=== PATIENT | male | born 1960 | race Two or more races ===

== ENCOUNTER 2018-03-24 17:35 | Inpatient (IN) | payer OTHER ==
--- NOTE | 2018-03-24 18:40 | ED Physician Chart ---
ED Chief Complaint/HPI - Patient Information Date Seen:: 03/24/18 Time Seen:: 17:55 Chief Complaint:: Dyspnea History of Present Illness:: onset x 2 days of dyspnea; pt denies trauma, LOC, H/As, S/T, neck pain, C/P, Abd. Pain, A/N/V/D/c, fever, chills, or urinary s/s Allergies:: Allergies Allergy/AdvReac Type Severity Reaction Status Date / Time Penicillins [PCN] Allergy Verified 03/24/18 17:56 Vitals:: Vital Signs - 8 hr 03/24/18 03/24/18 17:57 18:03 Temp 97.7 F 97.7 F HR 72 67 RR 20 12 BP 117/59 102/49 O2 Sat % 96 99 Historian:: Patient Review:: Nurse's Note Reviewed, Old Chart Reviewed <Adria Ramirez - Last Filed: 03/24/18 19:04> - Patient Information Allergies:: Allergies Allergy/AdvReac Type Severity Reaction Status Date / Time Penicillins [PCN] Allergy Verified 03/24/18 17:56 Vitals:: Vital Signs - 8 hr 03/24/18 03/24/18 17:57 18:03 Temp 97.7 F 97.7 F HR 72 67 RR 20 12 BP 117/59 102/49 O2 Sat % 96 99 <Donya Beltran - Last Filed: 03/25/18 11:23> ED Review of Systems - Review of Systems General/Constitutional: No fever, No chills, No weight loss, No weakness, No diaphoresis, No edema, No loss of appetite Skin: No skin lesions, No rash, No bruising Head: No headache, No light-headedness Eyes: No loss of vision, No pain, No diplopia ENT: No earache, No nasal drainage, No sore throat, No tinnitus Neck: No neck pain, No swelling, No thyromegaly, No stiffness, No mass noted Cardio Vascular: No chest pain, No palpitations, No PND, No orthopnea, No edema Pulmonary: SOB, No cough, No sputum, Wheezing GI: No nausea, No vomiting, No diarrhea, No pain, No melena, No hematochezia, No constipation, No hematemesis G/U: No dysuria, No frequency, No hematuria, No nacturia Musculoskeletal: No bone or joint pain, No back pain, No muscle pain Endocrine: No polyuria, No polydipsia Psychiatric: No prior psych history, No depression, No anxiety, No suicidal ideation, No homicidal ideation, No auditory hallucination, No visual hallucination Hematopoietic: No bruising, No lymphadenopathy Allergic/Immuno: No urticaria, No angioedema Neurological: No syncope, No focal symptoms, No weakness, No paresthesia, No headache, No seizure, No dizziness, No confusion, No vertigo <Adria Ramirez - Last Filed: 03/24/18 19:04> ED Past Medical History - Past Medical History Obtainable: Yes Past Medical History: HTN, CAD, Asthma/COPD, Dyslipidemia Family History: HTN Social History: Non Smoker, No Alcohol, No Drug Use, , Employed Surgical History: Pacemaker Psychiatricy History: None Medication: Reviewed <Adria Ramirez - Last Filed: 03/24/18 19:04> Family Medical History - Family Member Father History Unknown: Yes Living Status: <Adria Ramirez - Last Filed: 03/24/18 19:04> ED Physical Exam - Physical Examination General/Constitutional: Awake, Well-developed, well-nourished, Alert, No distress, GCS 15, Non-toxic appearing, Ambulatory Head: Atraumatic Eyes: Lids, conjuctiva normal, PERRL, EOMI Skin: Nl inspection, No rash, No skin lesions, No ecchymosis, Well hydrated, No lymphadenopathy ENMT: External ears, nose nl, TM canals nl, Nasal exam nl, Lips, teeth, gums nl , Oropharynx nl, Tonsils nl Neck: Nontender, Full ROM w/o pain, No JVD, No nuchal rigidity, No bruit, No mass, No stridor Respiratory: Nl effort/Exclusion, Clear to Auscultation, No Wheeze/Rhonchi/Rales Cardio Vascular: RRR, No murmur, gallop, rubs, NL S1 S2, Carotid/Femoral/Distal pulses equal bilaterally GI: No tenderness/rebounding/guarding, No organomegaly, No hernia, Normal BS's, Nondistended, No mass/bruits, No McBurney tenderness : No CVA tenderness Extremities: No tenderness or effusion, Full ROM, normal strength in all extremities, No edema, Normal digits & nails Neuro/Psych: Alert/oriented, DTR's symmetric, Normal sensory exam, Normal motor strength, Judgement/insight normal, Mood normal, Normal gait, No focal deficits Misc: Normal back, No paraspinal tenderness <AshleyAdria - Last Filed: 03/24/18 19:04> ED Labs/Radiology/EKG Results - Lab Results Comments:: Reviewed - EKG Interpretations EKG Time:: 18:11 Rate & Rhythm: 70; NSR Comments:: LVH; LAE; IVCD; non-specific st-t changes <DelphinesedagermánAdria - Last Filed: 03/24/18 19:04> - Lab Results Results: Laboratory Tests 03/24/18 03/24/18 03/24/18 18:25 18:25 18:25 WBC 23.9 H* RBC 4.55 Hgb 13.8 Hct 41.5 MCV 91.1 MCH 30.3 H MCHC Differential 33.3 RDW 13.4 Plt Count 228 MPV 9.2 Add Manual Diff YES PT INR PTT (Actin FS) D-Dimer 1220 H Sodium 135 L Potassium 5.0 Chloride 107 Carbon Dioxide 18.9 L Anion Gap 14.1 BUN 43 H Creatinine 1.3 Est GFR ( Amer) > 60.0 Est GFR (Non-Af Amer) > 60.0 BUN/Creatinine Ratio 33.1 Glucose 111 H Whole Bld Lactic Acid Calcium 8.5 L Total Bilirubin 0.8 AST 53 H ALT 75 H Alkaline Phosphatase 65 Creatine Kinase 41 Troponin I B-Natriuretic Peptide 1290.0 H Total Protein 6.1 Albumin 3.7 L Globulin 2.4 Albumin/Globulin Ratio 1.5 Triglycerides 265 H Cholesterol 164 LDL Cholesterol Direct 113 HDL Cholesterol 31 Urine Source Urine Color Urine Clarity Urine pH Ur Specific [place] Urine Protein Urine Glucose (UA) Urine Ketones Urine Blood Urine Nitrate Urine Bilirubin Urine Urobilinogen Ur Leukocyte Esterase Urine RBC Urine WBC Ur Epithelial Cells Urine Bacteria 03/24/18 03/24/18 03/24/18 18:25 18:25 18:25 WBC RBC Hgb Hct MCV MCH MCHC Differential RDW Plt Count MPV Add Manual Diff PT 11.4 INR 1.11 PTT (Actin FS) 21.8 L D-Dimer Sodium Potassium Chloride Carbon Dioxide Anion Gap BUN Creatinine Est GFR ( Amer) Est GFR (Non-Af Amer) BUN/Creatinine Ratio Glucose Whole Bld Lactic Acid 1.98 Calcium Total Bilirubin AST ALT Alkaline Phosphatase Creatine Kinase Troponin I 1.93 H* B-Natriuretic Peptide Total Protein Albumin Globulin Albumin/Globulin Ratio Triglycerides Cholesterol LDL Cholesterol Direct HDL Cholesterol Urine Source Urine Color Urine Clarity Urine pH Ur Specific [place] Urine Protein Urine Glucose (UA) Urine Ketones Urine Blood Urine Nitrate Urine Bilirubin Urine Urobilinogen Ur Leukocyte Esterase Urine RBC Urine WBC Ur Epithelial Cells Urine Bacteria 03/24/18 03/24/18 19:44 19:53 WBC RBC Hgb Hct MCV MCH MCHC Differential RDW Plt Count MPV Add Manual Diff PT INR PTT (Actin FS) D-Dimer Sodium Potassium Chloride Carbon Dioxide Anion Gap BUN Creatinine Est GFR ( Amer) Est GFR (Non-Af Amer) BUN/Creatinine Ratio Glucose Whole Bld Lactic Acid 1.77 Calcium Total Bilirubin AST ALT Alkaline Phosphatase Creatine Kinase Troponin I B-Natriuretic Peptide Total Protein Albumin Globulin Albumin/Globulin Ratio Triglycerides Cholesterol LDL Cholesterol Direct HDL Cholesterol Urine Source [place] Urine Color STRAW Urine Clarity CLEAR Urine pH 5.5 Ur Specific [place] 1.025 Urine Protein NEGATIVE Urine Glucose (UA) NEGATIVE Urine Ketones NEGATIVE Urine Blood TRACE Urine Nitrate NEGATIVE Urine Bilirubin NEGATIVE Urine Urobilinogen 0.2 Ur Leukocyte Esterase NEGATIVE Urine RBC 0-2 H Urine WBC 0-2 Ur Epithelial Cells NONE SEEN Urine Bacteria N - Radiology Results Results: CXR: cardiomegaly CTA chest: no PE <Donya Beltran - Last Filed: 03/25/18 11:23> ED Septic Shock - . Is Septic Shock (SBP<90, OR Lactate>4 mmol\L) present?: No - <6hrs of presentation: Vital Signs: Vital Signs - 8 hr 03/24/18 03/24/18 17:57 18:03 Temp 97.7 F 97.7 F HR 72 67 RR 20 12 BP 117/59 102/49 O2 Sat % 96 99 <Adria Ramirez - Last Filed: 03/24/18 19:04> - . Is Septic Shock (SBP<90, OR Lactate>4 mmol\L) present?: No - <6hrs of presentation: Vital Signs: Vital Signs - 8 hr 03/24/18 03/24/18 17:57 18:03 Temp 97.7 F 97.7 F HR 72 67 RR 20 12 BP 117/59 102/49 O2 Sat % 96 99 <Donya Beltran - Last Filed: 03/25/18 11:23> ED Reassessment (Disposition) - Reassessment Reassessment Condition:: Improved - Diagnosis Diagnosis:: Dyspnea <Adria Ramirez - Last Filed: 03/24/18 19:04> - Reassessment Reassessment:: Leukocytosis - Levaquin Hypotension and dehydration - NS 500ml IV bolus D-Dimer elevated at 1220 - CTA chest: no PE Elevated Troponin Elevated BNP Hypertrophic obstructive cardiomyopathy ICD status Reassessment Condition:: Improved - Patient Disposition Discharge/Transfer:: Acute Care w/in this hosp Admitting Medical Physician:: Ce Akers <Donya Beltran - Last Filed: 03/25/18 11:23>
[2018-03-24 18:46] LABS: BASOPHILE ABSOLUTE 0.5 Th/cumm (0-0.2); EOSINOPHILE ABSOLUTE 0.1 Th/cmm (0.1-0.4); HEMATOCRIT 41.5 % (41.0-60); HEMOGLOBIN 13.8 gm/dL (12-16); LYMPHOCYTE ABSOLUTE 1.3 Th/cmm (1.5-3.0); MEAN CELL VOLUME 91.1 fl (80-99); MEAN CORPUSCULAR HEMOGLOBIN 30.3 pg (26.0-30.0); MEAN CORPUSCULAR HGB CONC 33.3 pg (28.0-36.0); MEAN PLATELET VOLUME 9.2 fl; MONOCYTE ABSOLUTE 1.2 Th/cmm (0.3-1.0); NEUTROPHILE ABSOLUTE 20.8 Th/cmm (1.8-8.0); PLATELET COUNT 228 Th/cmm (150-400); RED BLOOD COUNT 4.55 Mil/cmm (4.30-5.70); RED CELL DISTRIBUTION WIDTH 13.4 % (11.5-20.0)
[2018-03-24 18:53] LABS: INR 1.11 (0.5-1.4); PROTHROMBIN TIME (TEST) 11.4 SECONDS (9.5-11.5)
[2018-03-24 18:55] LABS: ALB/GLOB RATIO 1.5 (1.0-1.8); ALBUMIN 3.7 gm/dL (4.2-5.5); ALKALINE PHOSPHATASE 65 U/L (34-104); ANION GAP 14.1 (7.0-16.0); BILIRUBIN,TOTAL 0.8 mg/dL (0.3-1.0); BUN - UREA NITROGEN 43 mg/dL (7-25); CALCIUM SERUM 8.5 mg/dL (8.6-10.3); CARBON DIOXIDE 18.9 mEq/L (21.0-31.0); CHLORIDE 107 mEq/L (98-107); CHOLESTEROL 164 mg/dL (<200); CREATININE - SERUM 1.3 mg/dL (0.7-1.3); CREATININE KINASE 41 U/L (30-223); GFR AFRICAN-AMERICAN > 60.0 ml/min (>90); GFR NON AFRICAN-AMERICAN > 60.0 ml/min; GLUCOSE 111 mg/dL (70-105); HDL -HIGH DENSITY LIPOPROTEIN 31 mg/dL (23-92); SGOT 53 U/L (13-39); SGPT/ALT 75 U/L (7-52); SODIUM SERUM 135 mEq/L (136-145); TOTAL PROTEIN,SERUM 6.1 gm/dL (6.0-8.3); TRIGLYCERIDES 265 mg/dL (<150)
[2018-03-24 19:22] LABS: DDIMER QUANT 1220 ng/mL (100-400)
[2018-03-24 19:28] LABS: WHITE BLOOD COUNT 23.9 Th/cmm (4.8-10.8)
[2018-03-24] MEDS ORDERED: Levofloxacin 500mg/100mL 500 MG/100 ML BAG IV ONE ×2 (19:33→19:34)
[2018-03-24] MEDS ORDERED: Sodium Chloride 0.9% 1,000 ML IV ONE (19:43)
[2018-03-24 19:55] LABS: URINE SOURCE MIDSTREAM
[2018-03-24 20:00] LABS: URINE BILIRUBIN NEGATIVE (NEGATIVE); URINE BLOOD TRACE (NEGATIVE); URINE GLUCOSE (UA) NEGATIVE (NEGATIVE); URINE KETONE NEGATIVE (NEGATIVE); URINE LEUKOCYTE ESTERASE NEGATIVE (NEGATIVE); URINE MICROSCOPIC INDICATED? YES; URINE NITRATE NEGATIVE (NEGATIVE); URINE PH 5.5 (4.6 - 8.0); URINE PROTEIN NEGATIVE (NEGATIVE); URINE UROBILINOGEN 0.2 E.U./dL (0.2 - 1.0)
[2018-03-24 20:17] LABS: URINE COLOR STRAW
[2018-03-24 20:18] LABS: URINE CLARITY CLEAR (CLEAR); URINE RBC 0-2 /hpf (0-5); URINE WBC 0-2 /hpf (0-5)
[2018-03-24 20:19] LABS: URINE BACTERIA N /hpf (NONE SEEN); URINE EPITHELIAL CELLS NONE SEEN /lpf (FEW)
[2018-03-24] MEDS ORDERED: IOHEXOL 350mgI/mL 100mL Bottle IVP ONE (20:54)
[2018-03-24 21:15] LABS: BAND NEUTROPHILE 1 % (0-10); LYMPHOCYTE 6 % (20-50); MONOCYTE 6 % (2-10); NEUTROPHILS 87 % (40-80)
[2018-03-24] MEDS ORDERED: Sodium Chloride 0.45% 1,000 ML IV SCH (22:00)
[2018-03-25 02:16] LABS: INF A SCREEN NEG FOR INF A
[2018-03-25 02:17] LABS: INF B SCREEN NEG FOR INF B
[2018-03-25 06:02] VITALS: BP 110/75
[2018-03-25 06:40] LABS: HEMATOCRIT 38.6 % (41.0-60); HEMOGLOBIN 12.7 gm/dL (12-16); MEAN CELL VOLUME 91.4 fl (80-99); MEAN CORPUSCULAR HEMOGLOBIN 30.1 pg (26.0-30.0); MEAN CORPUSCULAR HGB CONC 32.9 pg (28.0-36.0); MEAN PLATELET VOLUME 8.5 fl; RED BLOOD COUNT 4.23 Mil/cmm (4.30-5.70); RED CELL DISTRIBUTION WIDTH 13.3 % (11.5-20.0)
[2018-03-25 06:56] LABS: ANION GAP 10.8 (7.0-16.0); BUN - UREA NITROGEN 37 mg/dL (7-25); CALCIUM SERUM 8.5 mg/dL (8.6-10.3); CARBON DIOXIDE 27.6 mEq/L (21.0-31.0); CHLORIDE 104 mEq/L (98-107); CREATININE - SERUM 1.4 mg/dL (0.7-1.3); GFR AFRICAN-AMERICAN > 60.0 ml/min (>90); GFR NON AFRICAN-AMERICAN 55.3 ml/min; GLUCOSE 101 mg/dL (70-105); POTASSIUM SERUM 5.4 mEq/L (3.5-5.1); SODIUM SERUM 137 mEq/L (136-145)
[2018-03-25 06:59] LABS: WHITE BLOOD COUNT 16.9 Th/cmm (4.8-10.8)
[2018-03-25 07:00] LABS: PLATELET COUNT 179 Th/cmm (150-400)
[2018-03-25 07:38] LABS: BAND NEUTROPHILE 1 % (0-10); BASOPHIL 0 % (0-3); EOSINOPHIL 0 % (0-5); LYMPHOCYTE 15 % (20-50); MONOCYTE 6 % (2-10); NEUTROPHILS 78 % (40-80)
--- NOTE | 2018-03-25 08:21 | Diagnostic Imaging Report ---
Exam: Chest x-ray HISTORY: Chest pain Prior exam: None Findings: Frontal examination of chest reviewed, no prior studies available comparison. The study demonstrates cardiomegaly with superimposed congestion. The costophrenic angles are clear bony thorax intact. Left-sided pacemaker is noted. IMPRESSION: cardiomegaly congestive heart failure.
--- NOTE | 2018-03-25 08:41 | Diagnostic Imaging Report ---
CT pulmonary angiogram with intravenous contrast History: Embolism Total DLP equals 249 CTDI equals 6.9 Following administration of intravenous contrast, axial sections were obtained from a level above the clavicles down to a level below the diaphragm. The exam demonstrates normal opacification of the main right and left pulmonary arteries. No intraluminal lesions are seen. Specifically, no evidence of pulmonary embolism. There is preservation of normal fat planes throughout the mediastinum. No lymphadenopathy is seen. No abnormal focal pulmonary parenchymal masses or nodules are seen. No pleural effusions. Impression: Negative examination.
[2018-03-25] MEDS ORDERED: Influenza Vaccine (5 yr & older) 0.5 ml Syr IM ONE (10:28)
--- NOTE | 2018-03-25 21:17 | History and Physical ---
History of Present Illness - HPI Chief Complaint: Patient c/o Dyspnea. HPI: ROHINI VALDEZ MD HISTORY AND PHYSICAL Shady De La O : 1960 Admit date: 03/24/2018 Date: 03/25/2018 H&P Chief complaint Patient complaints of Dyspnea. Present illness 57 y/o male patient was recently admitted to [facility] due to Dyspnea. Patient has history of Embolism, Hypertension, CAD, Asthma/Copd and Dyslipidemia. Patient had a complete workup done. Patient was diagnosed with Dyspnea, Leukocytosis, Dehydration, Hypotension, Elevated Troponin, Elevated BNP , Hypertrophic Obstructive Cardiomyopathy. Patient was put on a course of Antibiotics, is being treated and monitored. Patient. Patient was transferred here on March 24, 2018 for continuation of care. Review of systems Vitals: Reviewed. General: Normotensive, in no acute distress. Head: Normocephalic, no lesions. Eyes: PERRLA, EOM'S full, conjunctive clear, fundi grossly normal. Neck: Supple, no masses, no thyromegaly, no bruits. Lungs: Clear, no rales, no rhonchi, no wheezes. Heart: Pacemaker present, RR, no murmurs, no rubs, no gallops. Abdomen: Soft, no tenderness, no masses, BS normal. Musculoskeletal: No joint pain, No edema noted. Psych: Normal mood and affect. Skin: No rash or skin lesions noted. Neurological: Denies headache and loss of consciousness. Past medical history History of Embolism,Hypertension, CAD, Asthma/Copd and Dyslipidemia. Past surgical history Pacemaker Placement. Medications Please refer to medication reconciliation sheet. Allergies Allergic to Penicillin. Family history Hypertension. Social history Nonsmoker, No Alcohol use, No drug abuse. Physical Exam- HEENT: Head is normocephalic, atraumatic. NECK: Supple. No JVD. No carotid bruit. CHEST: Bilateral breath sounds. No crackles. No wheezing. HEART: S1, S2 within normal limits. Regular rhythm. No murmur. No gallop. ABDOMEN: soft, non-tender, non-distended. Bowel sounds present. MUSCULOSKELETAL: No joint enlargement, No swelling or tenderness. EXTREMITIES: General Muscle weakness. NEUROLOGIC: Alert oriented x 3. Assessment and Impression Dyspnea. Leukocytosis. Dehydration. Hypotension. Elevated Troponin. Elevated BNP. Hypertrophic Obstructive Cardiomyopathy. Plan Continuation of care Monitor labs Continue present meds as directed Monitor vitals, continue B/P meds Monitor Diet/Nutritional support Respiratory treatments prn Fall precaution Safety precaution Supportive care Will Monitor patient and continue current treatment plan as ordered. Vital Signs: Last Vital Signs Temp 97.9 F 03/25/18 16:00 Pulse 70 03/25/18 19:29 Resp 18 03/25/18 19:29 BP 109/63 03/25/18 17:08 Pulse Ox 98 03/25/18 19:29 Family Medical History - Family Member Father History Unknown: Yes Living Status: - Allergies Allergies/Adverse Reactions: Allergies Allergy/AdvReac Type Severity Reaction Status Date / Time Penicillins [PCN] Allergy Verified 03/24/18 17:56 - Lab Results All Lab Results last 24 hours: Laboratory Results - last 24 hr 03/24/18 03/25/18 03/25/18 18:25 01:10 06:25 WBC 16.9 H D RBC 4.23 L Hgb 12.7 Hct 38.6 L MCV 91.4 MCH 30.1 H MCHC Differential 32.9 RDW 13.3 Plt Count 179 D MPV 8.5 Add Manual Diff YES Band Neutrophils % 1 1 Neutrophils (Manual) 87 H 78 Lymphocytes 6 L 15 L Monocytes 6 6 Eosinophils 0 Basophils 0 Sodium Potassium Chloride Carbon Dioxide Anion Gap BUN Creatinine Est GFR ( Amer) Est GFR (Non-Af Amer) BUN/Creatinine Ratio Glucose Calcium Troponin I B-Natriuretic Peptide Influenza A (Rapid) NEG FOR INF A Influenza B (Rapid) NEG FOR INF B 03/25/18 03/25/18 03/25/18 06:25 06:25 06:25 WBC RBC Hgb Hct MCV MCH MCHC Differential RDW Plt Count MPV Add Manual Diff Band Neutrophils % Neutrophils (Manual) Lymphocytes Monocytes Eosinophils Basophils Sodium 137 Potassium 5.4 H Chloride 104 Carbon Dioxide 27.6 Anion Gap 10.8 BUN 37 H Creatinine 1.4 H Est GFR ( Amer) > 60.0 Est GFR (Non-Af Amer) 55.3 BUN/Creatinine Ratio 26.4 Glucose 101 Calcium 8.5 L Troponin I 1.63 H* D B-Natriuretic Peptide 1180.0 H Influenza A (Rapid) Influenza B (Rapid) Microbiology 03/24/18 18:40 - Preliminary Blood NO GROWTH AFTER 24 HOURS 03/24/18 18:25 - Preliminary Blood NO GROWTH AFTER 24 HOURS
--- NOTE | 2018-03-25 21:22 | History & Physical ---
ADMIT DATE: 03/25/2018 HISTORY OF PRESENT ILLNESS: The patient is a 57-year-old patient who came to the Emergency Room complaining of severe shortness of breath and was admitted from the Emergency Room. The patient is known to have a history of hypertension, coronary artery disease, asthma, COPD, and hyperlipidemia. Complaining of increasing shortness of breath and cough. No chest pain, no abdominal pain, no other problem. REVIEW OF SYSTEMS: Otherwise, negative. PAST MEDICAL HISTORY: The patient also known to have history of pacemaker in the past. PHYSICAL EXAMINATION: GENERAL: The patient on examination is awake, alert, oriented. He appears to be short of breath. VITAL SIGNS: Stable. HEAD: Normal. ENT: Normal. NECK: Supple, nontender. LUNGS: Bilateral rhonchi. CARDIOVASCULAR SYSTEM: S1, S2 heard. ABDOMEN: Soft. Bowel sounds are present. CENTRAL NERVOUS SYSTEM: Grossly normal. LABORATORY DATA: The patient workup done including CBC, BMP. BNP was little bit high. DIAGNOSES: Acute dehydration, hypotension, leukocytosis, possible infection. The patient was given bolus of fluid in the Emergency Room and was admitted. Apparently, the patient because of the pacemaker, his gin clerk will see the patient and We will follow the patient. Continues his antibiotics. JOB# [id number]
[2018-03-25] MEDS: Levofloxacin 500mg/100mL 500 MG/100 ML BAG IV SCH (21:23)
[2018-03-26 08:23] LABS: ANION GAP 15.4 (7.0-16.0); BUN - UREA NITROGEN 41 mg/dL (7-25); CALCIUM SERUM 8.8 mg/dL (8.6-10.3); CHLORIDE 104 mEq/L (98-107); CREATININE - SERUM 1.4 mg/dL (0.7-1.3); GFR AFRICAN-AMERICAN > 60.0 ml/min (>90); GFR NON AFRICAN-AMERICAN 55.3 ml/min; GLUCOSE 84 mg/dL (70-105); POTASSIUM SERUM 4.4 mEq/L (3.5-5.1); SODIUM SERUM 138 mEq/L (136-145)
--- NOTE | 2018-03-26 12:15 | General Progress Note ---
Subjective - Review of Systems Service Date: 03/26/18 Subjective: Patient has less shortness of breath Left pedal edema Objective - Results Result Diagrams: 03/25/18 06:25 03/26/18 04:50 Recent Labs: Laboratory Last Values WBC 16.9 Th/cmm (4.8-10.8) H D 03/25/18 06:25 RBC 4.23 Mil/cmm (4.30-5.70) L 03/25/18 06:25 Hgb 12.7 gm/dL (12-16) 03/25/18 06:25 Hct 38.6 % (41.0-60) L 03/25/18 06:25 MCV 91.4 fl (80-99) 03/25/18 06:25 MCH 30.1 pg (26.0-30.0) H 03/25/18 06:25 MCHC Differential 32.9 pg (28.0-36.0) 03/25/18 06:25 RDW 13.3 % (11.5-20.0) 03/25/18 06:25 Plt Count 179 Th/cmm (150-400) D 03/25/18 06:25 MPV 8.5 fl 03/25/18 06:25 Add Manual Diff YES 03/25/18 06:25 Band Neutrophils % 1 % (0-10) 03/25/18 06:25 Neutrophils (Manual) 78 % (40-80) 03/25/18 06:25 Lymphocytes 15 % (20-50) L 03/25/18 06:25 Monocytes 6 % (2-10) 03/25/18 06:25 Eosinophils 0 % (0-5) 03/25/18 06:25 Basophils 0 % (0-3) 03/25/18 06:25 PT 11.4 SECONDS (9.5-11.5) 03/24/18 18:25 INR 1.11 (0.5-1.4) 03/24/18 18:25 PTT (Actin FS) 21.8 SECONDS (26.0-38.0) L 03/24/18 18:25 D-Dimer 1220 ng/mL (100-400) H 03/24/18 18:25 Sodium 138 mEq/L (136-145) 03/26/18 04:50 Potassium 4.4 mEq/L (3.5-5.1) 03/26/18 04:50 Chloride 104 mEq/L (98-107) 03/26/18 04:50 Carbon Dioxide 23.0 mEq/L (21.0-31.0) 03/26/18 04:50 Anion Gap 15.4 (7.0-16.0) 03/26/18 04:50 BUN 41 mg/dL (7-25) H 03/26/18 04:50 Creatinine 1.4 mg/dL (0.7-1.3) H 03/26/18 04:50 Est GFR ( Amer) > 60.0 ml/min (>90) 03/26/18 04:50 Est GFR (Non-Af Amer) 55.3 ml/min 03/26/18 04:50 BUN/Creatinine Ratio 29.3 03/26/18 04:50 Glucose 84 mg/dL (70-105) 03/26/18 04:50 Whole Bld Lactic Acid 1.77 mmol/L (0.60-1.99) 03/24/18 19:44 Calcium 8.8 mg/dL (8.6-10.3) 03/26/18 04:50 Total Bilirubin 0.8 mg/dL (0.3-1.0) 03/24/18 18:25 AST 53 U/L (13-39) H 03/24/18 18:25 ALT 75 U/L (7-52) H 03/24/18 18:25 Alkaline Phosphatase 65 U/L (34-104) 03/24/18 18:25 Creatine Kinase 41 U/L (30-223) 03/24/18 18:25 Troponin I 1.34 ng/mL (0.01-0.05) H* D 03/26/18 04:50 B-Natriuretic Peptide 1410.0 pg/mL (5.0-100.0) H 03/26/18 04:50 Total Protein 6.1 gm/dL (6.0-8.3) 03/24/18 18:25 Albumin 3.7 gm/dL (4.2-5.5) L 03/24/18 18:25 Globulin 2.4 gm/dL 03/24/18 18:25 Albumin/Globulin Ratio 1.5 (1.0-1.8) 03/24/18 18:25 Triglycerides 265 mg/dL (<150) H 03/24/18 18:25 Cholesterol 164 mg/dL (<200) 03/24/18 18:25 LDL Cholesterol Direct 113 mg/dL (75-193) 03/24/18 18:25 HDL Cholesterol 31 mg/dL (23-92) 03/24/18 18:25 Urine Source MIDSTREAM 03/24/18 19:53 Urine Color STRAW 03/24/18 19:53 Urine Clarity CLEAR (CLEAR) 03/24/18 19:53 Urine pH 5.5 (4.6 - 8.0) 03/24/18 19:53 Ur Specific [place] 1.025 (1.005-1.030) 03/24/18 19:53 Urine Protein NEGATIVE mg/dL (NEGATIVE) 03/24/18 19:53 Urine Glucose (UA) NEGATIVE mg/dL (NEGATIVE) 03/24/18 19:53 Urine Ketones NEGATIVE mg/dL (NEGATIVE) 03/24/18 19:53 Urine Blood TRACE (NEGATIVE) 03/24/18 19:53 Urine Nitrate NEGATIVE (NEGATIVE) 03/24/18 19:53 Urine Bilirubin NEGATIVE (NEGATIVE) 03/24/18 19:53 Urine Urobilinogen 0.2 E.U./dL (0.2 - 1.0) 03/24/18 19:53 Ur Leukocyte Esterase NEGATIVE (NEGATIVE) 03/24/18 19:53 Urine RBC 0-2 /hpf (0-5) H 03/24/18 19:53 Urine WBC 0-2 /hpf (0-5) 03/24/18 19:53 Ur Epithelial Cells NONE SEEN /lpf (FEW) 03/24/18 19:53 Urine Bacteria N /hpf (NONE SEEN) 03/24/18 19:53 Influenza A (Rapid) NEG FOR INF A 03/25/18 01:10 Influenza B (Rapid) NEG FOR INF B 03/25/18 01:10 - Physical Exam Vitals and I&O: Vital Signs Temp 97.9 F 03/26/18 12:00 Pulse 77 03/26/18 12:00 Resp 18 03/26/18 12:00 BP 108/69 03/26/18 12:00 Pulse Ox 99 03/26/18 12:00 Intake & Output 03/25/18 03/26/18 03/26/18 18:59 06:59 18:59 Intake Total 550 200 Output Total 450 Balance 100 200 Weight (lbs) 99.79 kg 99.79 kg Intake: Oral 550 200 Output: Urine 450 Other: # Voids 4 3 # Bowel Movements 0 Weight Source Bedscale Bedscale Active Medications: Current Medications Carvedilol (Coreg) 3.125 mg PO BID [facility] Stop: 05/24/18 16:59 Last Admin: 03/26/18 09:45 Dose: 3.125 mg Furosemide (Lasix) 40 mg IVP BID [facility] Stop: 05/24/18 16:59 Last Admin: 03/26/18 09:46 Dose: 40 mg Levofloxacin (Levaquin Pb) 500 mg in 100 mls @ 100 mls/hr IV Q24HR [facility] Stop: 03/31/18 20:59 Last Admin: 03/25/18 21:23 Dose: 100 mls/hr General: Alert, Mild distress HEENT: Mucous membr. moist/pink Neck: Supple, JVD (10 cm above sternal angle), +2 carotid pulse wo bruit Cardiovascular: Regular rate, Normal S1, Normal S2, Systolic murmurs, Other ( cardiomyopathy) Lungs: Other (basilar rales decreased breath sound both the bases) Abdomen: Bowel sounds, Soft, Obese Extremities: Edema (mild) Neurological: Normal gait, Normal speech, Strength at 5/5 X4 ext, Normal tone, Sensation intact, Cranial nerves 3-12 NL, Reflexes 2+ Assessment/Plan - Assessment Assessment: Non-STEMI myocardial infarction Congestive heart failure - Plan Plan: Fluid restriction Salt restriction Lasix Coreg
--- NOTE | 2018-03-26 13:56 | Consultation ---
Consult Note - Consult Note Service Date: 03/26/18 Referring Physician: Ce Akers Consult Note: PHYSICIAN Consultation Note: Date of Admission: 03/24/18 Purpose of Consultation: Chief Complaint: Patient JOSE ALEJANDRO MCKEON was admitted to [facility] Telemetry with CHF, CARDIOMYOPATHY, R/O PE. History of Present Illness: Past Medical History: Allergies Allergy/AdvReac Type Severity Reaction Status Date / Time Penicillins [PCN] Allergy Verified 03/24/18 17:56 Vital Signs Temp 97.9 F 03/26/18 12:00 Pulse 77 03/26/18 12:00 Resp 18 03/26/18 12:00 BP 108/69 03/26/18 12:00 Pulse Ox 99 03/26/18 12:00 Intake & Output 03/25/18 03/26/18 03/26/18 18:59 06:59 18:59 Intake Total 550 200 Output Total 450 Balance 100 200 Weight (lbs) 99.79 kg 99.79 kg Intake: Oral 550 200 Output: Urine 450 Other: # Voids 4 3 # Bowel Movements 0 [facility] Laboratory Results - last 24 hr 03/26/18 03/26/18 03/26/18 04:50 04:50 04:50 Sodium 138 Potassium 4.4 Chloride 104 Carbon Dioxide 23.0 Anion Gap 15.4 BUN 41 H Creatinine 1.4 H Est GFR ( Amer) > 60.0 Est GFR (Non-Af Amer) 55.3 BUN/Creatinine Ratio 29.3 Glucose 84 Calcium 8.8 Troponin I 1.34 H* D B-Natriuretic Peptide 1410.0 H Current Medications Generic Name Dose Route Start Last Admin Trade Name Freq PRN Reason Stop Dose Admin Carvedilol 3.125 mg 03/25/18 17:00 03/26/18 09:45 Coreg PO 05/24/18 16:59 3.125 mg BID [facility]ITA Administration Furosemide 40 mg 03/25/18 17:00 03/26/18 09:46 Lasix IVP 05/24/18 16:59 40 mg BID [facility] Administration Levofloxacin 500 mg in 100 mls @ 100 mls/hr 03/25/18 20:00 03/25/18 21:23 Levaquin Pb IV 03/31/18 20:59 100 mls/hr Q24HR [facility] Administration Review of Systems: A 12 point ROS was reviewed with the pertinent positive and negatives noted in the HPI. Social History Smoking Status Unknown if ever smoked Family Medical History Family Medical History Start: 03/24/18 23: 22 Freq: ONCE Status: Active Protocol: Document 03/24/18 23:22 ALEC (Rec: 03/25/18 05:51 FLACOLANAAce [id number]) Family Medical History Father History Unknown Yes Physical Exam: General: HEENT: Neck: Cardio: Respiratory: Abdominal: Genital/Urinary: Extremities: Neurological: Assessment: Plan: Signed, Boni Núñez M.D. 03/26/[id number]
--- NOTE | 2018-03-26 20:46 | General Progress Note ---
Objective - Results Result Diagrams: 03/25/18 06:25 03/26/18 04:50 Recent Labs: Laboratory Last Values WBC 16.9 Th/cmm (4.8-10.8) H D 03/25/18 06:25 RBC 4.23 Mil/cmm (4.30-5.70) L 03/25/18 06:25 Hgb 12.7 gm/dL (12-16) 03/25/18 06:25 Hct 38.6 % (41.0-60) L 03/25/18 06:25 MCV 91.4 fl (80-99) 03/25/18 06:25 MCH 30.1 pg (26.0-30.0) H 03/25/18 06:25 MCHC Differential 32.9 pg (28.0-36.0) 03/25/18 06:25 RDW 13.3 % (11.5-20.0) 03/25/18 06:25 Plt Count 179 Th/cmm (150-400) D 03/25/18 06:25 MPV 8.5 fl 03/25/18 06:25 Add Manual Diff YES 03/25/18 06:25 Band Neutrophils % 1 % (0-10) 03/25/18 06:25 Neutrophils (Manual) 78 % (40-80) 03/25/18 06:25 Lymphocytes 15 % (20-50) L 03/25/18 06:25 Monocytes 6 % (2-10) 03/25/18 06:25 Eosinophils 0 % (0-5) 03/25/18 06:25 Basophils 0 % (0-3) 03/25/18 06:25 PT 11.4 SECONDS (9.5-11.5) 03/24/18 18:25 INR 1.11 (0.5-1.4) 03/24/18 18:25 PTT (Actin FS) 21.8 SECONDS (26.0-38.0) L 03/24/18 18:25 D-Dimer 1220 ng/mL (100-400) H 03/24/18 18:25 Sodium 138 mEq/L (136-145) 03/26/18 04:50 Potassium 4.4 mEq/L (3.5-5.1) 03/26/18 04:50 Chloride 104 mEq/L (98-107) 03/26/18 04:50 Carbon Dioxide 23.0 mEq/L (21.0-31.0) 03/26/18 04:50 Anion Gap 15.4 (7.0-16.0) 03/26/18 04:50 BUN 41 mg/dL (7-25) H 03/26/18 04:50 Creatinine 1.4 mg/dL (0.7-1.3) H 03/26/18 04:50 Est GFR ( Amer) > 60.0 ml/min (>90) 03/26/18 04:50 Est GFR (Non-Af Amer) 55.3 ml/min 03/26/18 04:50 BUN/Creatinine Ratio 29.3 03/26/18 04:50 Glucose 84 mg/dL (70-105) 03/26/18 04:50 Whole Bld Lactic Acid 1.77 mmol/L (0.60-1.99) 03/24/18 19:44 Calcium 8.8 mg/dL (8.6-10.3) 03/26/18 04:50 Total Bilirubin 0.8 mg/dL (0.3-1.0) 03/24/18 18:25 AST 53 U/L (13-39) H 03/24/18 18:25 ALT 75 U/L (7-52) H 03/24/18 18:25 Alkaline Phosphatase 65 U/L (34-104) 03/24/18 18:25 Creatine Kinase 41 U/L (30-223) 03/24/18 18:25 Troponin I 1.34 ng/mL (0.01-0.05) H* D 03/26/18 04:50 B-Natriuretic Peptide 1410.0 pg/mL (5.0-100.0) H 03/26/18 04:50 Total Protein 6.1 gm/dL (6.0-8.3) 03/24/18 18:25 Albumin 3.7 gm/dL (4.2-5.5) L 03/24/18 18:25 Globulin 2.4 gm/dL 03/24/18 18:25 Albumin/Globulin Ratio 1.5 (1.0-1.8) 03/24/18 18:25 Triglycerides 265 mg/dL (<150) H 03/24/18 18:25 Cholesterol 164 mg/dL (<200) 03/24/18 18:25 LDL Cholesterol Direct 113 mg/dL (75-193) 03/24/18 18:25 HDL Cholesterol 31 mg/dL (23-92) 03/24/18 18:25 Urine Source MIDSTREAM 03/24/18 19:53 Urine Color STRAW 03/24/18 19:53 Urine Clarity CLEAR (CLEAR) 03/24/18 19:53 Urine pH 5.5 (4.6 - 8.0) 03/24/18 19:53 Ur Specific [place] 1.025 (1.005-1.030) 03/24/18 19:53 Urine Protein NEGATIVE mg/dL (NEGATIVE) 03/24/18 19:53 Urine Glucose (UA) NEGATIVE mg/dL (NEGATIVE) 03/24/18 19:53 Urine Ketones NEGATIVE mg/dL (NEGATIVE) 03/24/18 19:53 Urine Blood TRACE (NEGATIVE) 03/24/18 19:53 Urine Nitrate NEGATIVE (NEGATIVE) 03/24/18 19:53 Urine Bilirubin NEGATIVE (NEGATIVE) 03/24/18 19:53 Urine Urobilinogen 0.2 E.U./dL (0.2 - 1.0) 03/24/18 19:53 Ur Leukocyte Esterase NEGATIVE (NEGATIVE) 03/24/18 19:53 Urine RBC 0-2 /hpf (0-5) H 03/24/18 19:53 Urine WBC 0-2 /hpf (0-5) 03/24/18 19:53 Ur Epithelial Cells NONE SEEN /lpf (FEW) 03/24/18 19:53 Urine Bacteria N /hpf (NONE SEEN) 03/24/18 19:53 Influenza A (Rapid) NEG FOR INF A 03/25/18 01:10 Influenza B (Rapid) NEG FOR INF B 03/25/18 01:10 - Physical Exam Vitals and I&O: Vital Signs Temp 97.7 F 03/26/18 20:00 Pulse 76 03/26/18 20:00 Resp 20 03/26/18 20:00 BP 112/66 03/26/18 20:00 Pulse Ox 100 03/26/18 20:00 Intake & Output 03/26/18 03/26/18 03/27/18 06:59 18:59 06:59 Intake Total 200 Balance 200 Weight (lbs) 99.79 kg Intake: Oral 200 Other: # Voids 3 # Bowel Movements 0 Weight Source Bedscale Active Medications: Current Medications Carvedilol (Coreg) 3.125 mg PO BID [facility] Stop: 05/24/18 16:59 Last Admin: 03/26/18 16:50 Dose: 3.125 mg Furosemide (Lasix) 40 mg IVP BID [facility] Stop: 05/24/18 16:59 Last Admin: 03/26/18 16:53 Dose: 40 mg Levofloxacin (Levaquin Pb) 500 mg in 100 mls @ 100 mls/hr IV Q24HR [facility] Stop: 03/31/18 20:59 Last Admin: 03/25/18 21:23 Dose: 100 mls/hr General: Alert, Mild distress HEENT: Mucous membr. moist/pink Neck: Supple, JVD (10 cm above sternal angle), +2 carotid pulse wo bruit Cardiovascular: Regular rate, Normal S1, Normal S2, Systolic murmurs, Other ( cardiomyopathy) Lungs: Other (basilar rales decreased breath sound both the bases) Abdomen: Bowel sounds, Soft, Obese Extremities: Edema (mild) Neurological: Normal gait, Normal speech, Strength at 5/5 X4 ext, Normal tone, Sensation intact, Cranial nerves 3-12 NL, Reflexes 2+
[2018-03-26] MEDS: Levofloxacin 500mg/100mL 500 MG/100 ML BAG IV SCH (20:57)
--- NOTE | 2018-03-27 01:29 | Consultation ---
DATE OF CONSULTATION: 03/26/2018 INFECTIOUS DISEASE CONSULTATION REFERRING PHYSICIAN: Dr. Akers. REASON FOR CONSULTATION: Shortness of breath. HISTORY OF PRESENT ILLNESS: The patient is a 57-year-old male with a past medical history of hypertension, coronary artery disease, asthma, COPD, hyperlipidemia, presented to ER with cough and shortness of breath. On initial evaluation, the patient was afebrile and WBC count was 23,900. The patient's troponin was also high. The patient was diagnosed to have CHF. CT angio was performed and it came negative. As the patient had leukocytosis, sepsis workup was performed and it was negative. Antibiotic jay, empirically, the patient was started on Levaquin. PAST MEDICAL HISTORY: Includes hypertension, coronary artery disease, COPD, asthma and hyperlipidemia. REVIEW OF SYSTEMS: GENERAL: The patient denies any fever or chills. HEENT: No diplopia, no photophobia, no sore throat. RESPIRATORY: The patient has cough and shortness of breath. No wheezing. CARDIOVASCULAR: No chest pain. No palpitation. GASTROINTESTINAL: No nausea, no vomiting, no diarrhea, no constipation. GENITOURINARY: No dysuria. NEUROLOGIC: No headache, no dizziness, no focal weakness. PHYSICAL EXAMINATION: CURRENT VITAL SIGNS: Shows temperature is 97.9 degrees Fahrenheit, pulse 77, respiration 18, blood pressure 108/69. GENERAL: The patient is comfortable, well nourished, well developed. HEENT: Head is normocephalic, atraumatic. Oral cavity moist, pink tongue. NECK: Supple, no JVD, no carotid bruit. Trachea in midline. CHEST: Bilateral breath sounds. No crackles or wheezing. HEART: S1, S2 within normal limit. Regular rhythm. No murmur, no gallop. ABDOMEN: Soft, nontender, nondistended. Bowel sounds present. EXTREMITIES: No cyanosis, no clubbing and mild edema present. NEUROLOGICAL: Alert, awake, oriented x 3. No focal deficits. LABORATORY DATA: Current lab shows WBC count is 16,900, hemoglobin 12.7, hematocrit 38.6, platelets are 179,000, neutrophils 78%. Sodium 138, potassium 4.4, chloride 104, bicarbonate is 23, BUN is 41, creatinine 1.4, glucose is 84. Urinalysis, negative nitrite, negative leukoesterase. Influenza A and B screen is negative. IMPRESSION: 1. Leukocytosis, most likely reactive. 2. Non-STEMI myocardial infarction. 3. Congestive heart failure. 4. Chronic obstructive pulmonary disease. 5. Hyperlipidemia. RECOMMENDATIONS: We will continue Levaquin at this time and the patient may need to [facility] as per the insurance purposes. I discussed with the patient and RN in detail. JOB# [id number]
[2018-03-27 06:36] LABS: % BASOPHILS 0.9 % (0.0-2.0); % EOSINOPHILS 1.8 % (0.0-5.0); % LYMPHOCYTES 10.2 % (20.0-50.0); % MONOCYTES 6.4 % (2.0-10.0); % NEUTROPHILS 80.7 % (40.0-80.0); BASOPHILE ABSOLUTE 0.1 Th/cumm (0-0.2); EOSINOPHILE ABSOLUTE 0.3 Th/cmm (0.1-0.4); HEMATOCRIT 42.3 % (41.0-60); LYMPHOCYTE ABSOLUTE 1.5 Th/cmm (1.5-3.0); MEAN CELL VOLUME 91.4 fl (80-99); MEAN CORPUSCULAR HEMOGLOBIN 30.2 pg (26.0-30.0); MEAN CORPUSCULAR HGB CONC 33.1 pg (28.0-36.0); MEAN PLATELET VOLUME 8.8 fl; MONOCYTE ABSOLUTE 0.9 Th/cmm (0.3-1.0); NEUTROPHILE ABSOLUTE 11.9 Th/cmm (1.8-8.0); PLATELET COUNT 191 Th/cmm (150-400); RED BLOOD COUNT 4.63 Mil/cmm (4.30-5.70); RED CELL DISTRIBUTION WIDTH 13.7 % (11.5-20.0); WHITE BLOOD COUNT 14.7 Th/cmm (4.8-10.8)
[2018-03-27 06:48] LABS: ANION GAP 10.7 (7.0-16.0); CALCIUM SERUM 8.8 mg/dL (8.6-10.3); CARBON DIOXIDE 31.6 mEq/L (21.0-31.0); CREATININE - SERUM 1.6 mg/dL (0.7-1.3); GFR AFRICAN-AMERICAN 57.4 ml/min (>90); GFR NON AFRICAN-AMERICAN 47.4 ml/min; POTASSIUM SERUM 4.3 mEq/L (3.5-5.1)
--- NOTE | 2018-03-27 13:20 | Internal Medicine Prog Note ---
Internal Medicine Subjective - Subjective Service Date: 03/27/18 Patient seen and examined:: with staff Patient is:: awake, verbal Patient Complaints of:: SOB Internal Medicine Objective - Results Result Diagrams: 03/27/18 06:15 03/27/18 06:15 Recent Labs: Laboratory Last Values WBC 14.7 Th/cmm (4.8-10.8) H 03/27/18 06:15 RBC 4.63 Mil/cmm (4.30-5.70) 03/27/18 06:15 Hgb 14.0 gm/dL (12-16) 03/27/18 06:15 Hct 42.3 % (41.0-60) 03/27/18 06:15 MCV 91.4 fl (80-99) 03/27/18 06:15 MCH 30.2 pg (26.0-30.0) H 03/27/18 06:15 MCHC Differential 33.1 pg (28.0-36.0) 03/27/18 06:15 RDW 13.7 % (11.5-20.0) 03/27/18 06:15 Plt Count 191 Th/cmm (150-400) 03/27/18 06:15 MPV 8.8 fl 03/27/18 06:15 Add Manual Diff YES 03/25/18 06:25 Neutrophils % 80.7 % (40.0-80.0) H 03/27/18 06:15 Band Neutrophils % 1 % (0-10) 03/25/18 06:25 Lymphocytes % 10.2 % (20.0-50.0) L 03/27/18 06:15 Monocytes % 6.4 % (2.0-10.0) 03/27/18 06:15 Eosinophils % 1.8 % (0.0-5.0) 03/27/18 06:15 Basophils % 0.9 % (0.0-2.0) 03/27/18 06:15 Neutrophils (Manual) 78 % (40-80) 03/25/18 06:25 Lymphocytes 15 % (20-50) L 03/25/18 06:25 Monocytes 6 % (2-10) 03/25/18 06:25 Eosinophils 0 % (0-5) 03/25/18 06:25 Basophils 0 % (0-3) 03/25/18 06:25 PT 11.4 SECONDS (9.5-11.5) 03/24/18 18:25 INR 1.11 (0.5-1.4) 03/24/18 18:25 PTT (Actin FS) 21.8 SECONDS (26.0-38.0) L 03/24/18 18:25 D-Dimer 1220 ng/mL (100-400) H 03/24/18 18:25 Sodium 140 mEq/L (136-145) 03/27/18 06:15 Potassium 4.3 mEq/L (3.5-5.1) 03/27/18 06:15 Chloride 102 mEq/L (98-107) 03/27/18 06:15 Carbon Dioxide 31.6 mEq/L (21.0-31.0) H 03/27/18 06:15 Anion Gap 10.7 (7.0-16.0) 03/27/18 06:15 BUN 42 mg/dL (7-25) H 03/27/18 06:15 Creatinine 1.6 mg/dL (0.7-1.3) H 03/27/18 06:15 Est GFR ( Amer) 57.4 ml/min (>90) 03/27/18 06:15 Est GFR (Non-Af Amer) 47.4 ml/min 03/27/18 06:15 BUN/Creatinine Ratio 26.3 03/27/18 06:15 Glucose 94 mg/dL (70-105) 03/27/18 06:15 Whole Bld Lactic Acid 1.77 mmol/L (0.60-1.99) 03/24/18 19:44 Calcium 8.8 mg/dL (8.6-10.3) 03/27/18 06:15 Total Bilirubin 0.8 mg/dL (0.3-1.0) 03/24/18 18:25 AST 53 U/L (13-39) H 03/24/18 18:25 ALT 75 U/L (7-52) H 03/24/18 18:25 Alkaline Phosphatase 65 U/L (34-104) 03/24/18 18:25 Creatine Kinase 41 U/L (30-223) 03/24/18 18:25 Troponin I 0.76 ng/mL (0.01-0.05) H* D 03/27/18 06:15 B-Natriuretic Peptide 1410.0 pg/mL (5.0-100.0) H 03/26/18 04:50 Total Protein 6.1 gm/dL (6.0-8.3) 03/24/18 18:25 Albumin 3.7 gm/dL (4.2-5.5) L 03/24/18 18:25 Globulin 2.4 gm/dL 03/24/18 18:25 Albumin/Globulin Ratio 1.5 (1.0-1.8) 03/24/18 18:25 Triglycerides 265 mg/dL (<150) H 03/24/18 18:25 Cholesterol 164 mg/dL (<200) 03/24/18 18:25 LDL Cholesterol Direct 113 mg/dL (75-193) 03/24/18 18:25 HDL Cholesterol 31 mg/dL (23-92) 03/24/18 18:25 Urine Source MIDSTREAM 03/24/18 19:53 Urine Color STRAW 03/24/18 19:53 Urine Clarity CLEAR (CLEAR) 03/24/18 19:53 Urine pH 5.5 (4.6 - 8.0) 03/24/18 19:53 Ur Specific [place] 1.025 (1.005-1.030) 03/24/18 19:53 Urine Protein NEGATIVE mg/dL (NEGATIVE) 03/24/18 19:53 Urine Glucose (UA) NEGATIVE mg/dL (NEGATIVE) 03/24/18 19:53 Urine Ketones NEGATIVE mg/dL (NEGATIVE) 03/24/18 19:53 Urine Blood TRACE (NEGATIVE) 03/24/18 19:53 Urine Nitrate NEGATIVE (NEGATIVE) 03/24/18 19:53 Urine Bilirubin NEGATIVE (NEGATIVE) 03/24/18 19:53 Urine Urobilinogen 0.2 E.U./dL (0.2 - 1.0) 03/24/18 19:53 Ur Leukocyte Esterase NEGATIVE (NEGATIVE) 03/24/18 19:53 Urine RBC 0-2 /hpf (0-5) H 03/24/18 19:53 Urine WBC 0-2 /hpf (0-5) 03/24/18 19:53 Ur Epithelial Cells NONE SEEN /lpf (FEW) 03/24/18 19:53 Urine Bacteria N /hpf (NONE SEEN) 03/24/18 19:53 Influenza A (Rapid) NEG FOR INF A 03/25/18 01:10 Influenza B (Rapid) NEG FOR INF B 03/25/18 01:10 - Physical Exam Vitals and I&O: Vital Signs Temp 96.9 F 03/27/18 11:34 Pulse 77 03/27/18 11:34 Resp 19 03/27/18 11:34 BP 99/72 03/27/18 11:34 Pulse Ox 100 03/27/18 11:34 Intake & Output 03/26/18 03/27/18 03/27/18 18:59 06:59 18:59 Weight (lbs) 220 lb Other: Weight Source Bedscale Active Medications: Current Medications Carvedilol (Coreg) 3.125 mg PO BID [facility] Stop: 05/24/18 16:59 Last Admin: 03/27/18 09:58 Dose: 3.125 mg Furosemide (Lasix) 40 mg IVP BID [facility] Stop: 05/24/18 16:59 Last Admin: 03/27/18 09:58 Dose: 40 mg Levofloxacin (Levaquin Pb) 500 mg in 100 mls @ 100 mls/hr IV Q24HR [facility] Stop: 03/31/18 20:59 Last Admin: 03/26/18 20:57 Dose: 100 mls/hr General: alert HEENT: NC/AT, PERRLA Neck: Supple Lungs: ronchi Cardiovascular: RRR Internal Medicine Assmt/Plan - Assessment Assessment: Non-STEMI myocardial infarction Congestive heart failure - Plan Plan: cont supplemental o2 daily weights lasix to continue am labs
--- NOTE | 2018-03-27 13:40 | General Progress Note ---
Subjective - Review of Systems Service Date: 03/27/18 Subjective: Patient has less shortness of breath Left pedal edema Patient's condition discussed at length Objective - Results Result Diagrams: 03/27/18 06:15 03/27/18 06:15 Recent Labs: Laboratory Last Values WBC 14.7 Th/cmm (4.8-10.8) H 03/27/18 06:15 RBC 4.63 Mil/cmm (4.30-5.70) 03/27/18 06:15 Hgb 14.0 gm/dL (12-16) 03/27/18 06:15 Hct 42.3 % (41.0-60) 03/27/18 06:15 MCV 91.4 fl (80-99) 03/27/18 06:15 MCH 30.2 pg (26.0-30.0) H 03/27/18 06:15 MCHC Differential 33.1 pg (28.0-36.0) 03/27/18 06:15 RDW 13.7 % (11.5-20.0) 03/27/18 06:15 Plt Count 191 Th/cmm (150-400) 03/27/18 06:15 MPV 8.8 fl 03/27/18 06:15 Add Manual Diff YES 03/25/18 06:25 Neutrophils % 80.7 % (40.0-80.0) H 03/27/18 06:15 Band Neutrophils % 1 % (0-10) 03/25/18 06:25 Lymphocytes % 10.2 % (20.0-50.0) L 03/27/18 06:15 Monocytes % 6.4 % (2.0-10.0) 03/27/18 06:15 Eosinophils % 1.8 % (0.0-5.0) 03/27/18 06:15 Basophils % 0.9 % (0.0-2.0) 03/27/18 06:15 Neutrophils (Manual) 78 % (40-80) 03/25/18 06:25 Lymphocytes 15 % (20-50) L 03/25/18 06:25 Monocytes 6 % (2-10) 03/25/18 06:25 Eosinophils 0 % (0-5) 03/25/18 06:25 Basophils 0 % (0-3) 03/25/18 06:25 PT 11.4 SECONDS (9.5-11.5) 03/24/18 18:25 INR 1.11 (0.5-1.4) 03/24/18 18:25 PTT (Actin FS) 21.8 SECONDS (26.0-38.0) L 03/24/18 18:25 D-Dimer 1220 ng/mL (100-400) H 03/24/18 18:25 Sodium 140 mEq/L (136-145) 03/27/18 06:15 Potassium 4.3 mEq/L (3.5-5.1) 03/27/18 06:15 Chloride 102 mEq/L (98-107) 03/27/18 06:15 Carbon Dioxide 31.6 mEq/L (21.0-31.0) H 03/27/18 06:15 Anion Gap 10.7 (7.0-16.0) 03/27/18 06:15 BUN 42 mg/dL (7-25) H 03/27/18 06:15 Creatinine 1.6 mg/dL (0.7-1.3) H 03/27/18 06:15 Est GFR ( Amer) 57.4 ml/min (>90) 03/27/18 06:15 Est GFR (Non-Af Amer) 47.4 ml/min 03/27/18 06:15 BUN/Creatinine Ratio 26.3 03/27/18 06:15 Glucose 94 mg/dL (70-105) 03/27/18 06:15 Whole Bld Lactic Acid 1.77 mmol/L (0.60-1.99) 03/24/18 19:44 Calcium 8.8 mg/dL (8.6-10.3) 03/27/18 06:15 Total Bilirubin 0.8 mg/dL (0.3-1.0) 03/24/18 18:25 AST 53 U/L (13-39) H 03/24/18 18:25 ALT 75 U/L (7-52) H 03/24/18 18:25 Alkaline Phosphatase 65 U/L (34-104) 03/24/18 18:25 Creatine Kinase 41 U/L (30-223) 03/24/18 18:25 Troponin I 0.76 ng/mL (0.01-0.05) H* D 03/27/18 06:15 B-Natriuretic Peptide 1410.0 pg/mL (5.0-100.0) H 03/26/18 04:50 Total Protein 6.1 gm/dL (6.0-8.3) 03/24/18 18:25 Albumin 3.7 gm/dL (4.2-5.5) L 03/24/18 18:25 Globulin 2.4 gm/dL 03/24/18 18:25 Albumin/Globulin Ratio 1.5 (1.0-1.8) 03/24/18 18:25 Triglycerides 265 mg/dL (<150) H 03/24/18 18:25 Cholesterol 164 mg/dL (<200) 03/24/18 18:25 LDL Cholesterol Direct 113 mg/dL (75-193) 03/24/18 18:25 HDL Cholesterol 31 mg/dL (23-92) 03/24/18 18:25 Urine Source MIDSTREAM 03/24/18 19:53 Urine Color STRAW 03/24/18 19:53 Urine Clarity CLEAR (CLEAR) 03/24/18 19:53 Urine pH 5.5 (4.6 - 8.0) 03/24/18 19:53 Ur Specific [place] 1.025 (1.005-1.030) 03/24/18 19:53 Urine Protein NEGATIVE mg/dL (NEGATIVE) 03/24/18 19:53 Urine Glucose (UA) NEGATIVE mg/dL (NEGATIVE) 03/24/18 19:53 Urine Ketones NEGATIVE mg/dL (NEGATIVE) 03/24/18 19:53 Urine Blood TRACE (NEGATIVE) 03/24/18 19:53 Urine Nitrate NEGATIVE (NEGATIVE) 03/24/18 19:53 Urine Bilirubin NEGATIVE (NEGATIVE) 03/24/18 19:53 Urine Urobilinogen 0.2 E.U./dL (0.2 - 1.0) 03/24/18 19:53 Ur Leukocyte Esterase NEGATIVE (NEGATIVE) 03/24/18 19:53 Urine RBC 0-2 /hpf (0-5) H 03/24/18 19:53 Urine WBC 0-2 /hpf (0-5) 03/24/18 19:53 Ur Epithelial Cells NONE SEEN /lpf (FEW) 03/24/18 19:53 Urine Bacteria N /hpf (NONE SEEN) 03/24/18 19:53 Influenza A (Rapid) NEG FOR INF A 03/25/18 01:10 Influenza B (Rapid) NEG FOR INF B 03/25/18 01:10 - Physical Exam Vitals and I&O: Vital Signs Temp 96.9 F 03/27/18 11:34 Pulse 77 03/27/18 11:34 Resp 19 03/27/18 11:34 BP 99/72 03/27/18 11:34 Pulse Ox 100 03/27/18 11:34 Intake & Output 03/26/18 03/27/18 03/27/18 18:59 06:59 18:59 Weight (lbs) 99.79 kg Other: Weight Source Bedscale Active Medications: Current Medications Carvedilol (Coreg) 3.125 mg PO BID [facility] Stop: 05/24/18 16:59 Last Admin: 03/27/18 09:58 Dose: 3.125 mg Furosemide (Lasix) 40 mg IVP BID [facility] Stop: 05/24/18 16:59 Last Admin: 03/27/18 09:58 Dose: 40 mg Levofloxacin (Levaquin Pb) 500 mg in 100 mls @ 100 mls/hr IV Q24HR [facility] Stop: 03/31/18 20:59 Last Admin: 03/26/18 20:57 Dose: 100 mls/hr General: Alert, Mild distress HEENT: Mucous membr. moist/pink Neck: Supple, JVD (10 cm above sternal angle), +2 carotid pulse wo bruit Cardiovascular: Regular rate, Normal S1, Normal S2, Systolic murmurs, Other ( cardiomyopathy) Lungs: Other (basilar rales decreased breath sound both the bases) Abdomen: Bowel sounds, Soft, Obese Extremities: Edema (mild) Neurological: Normal gait, Normal speech, Strength at 5/5 X4 ext, Normal tone, Sensation intact, Cranial nerves 3-12 NL, Reflexes 2+ Assessment/Plan - Assessment Assessment: Non-STEMI myocardial infarction Congestive heart failure - Plan Plan: Fluid restriction Salt restriction Lasix Coreg Discharge planning
--- NOTE | 2018-03-27 14:11 | Cardiology ---
03/25/[address] Akers. M-MODE ECHOCARDIOGRAM: Mitral valve, anterior leaflet of mitral valve shows normal excursion, EF velocity. Posterior leaflet of the mitral valve shows normal excursion. Left ventricular posterior wall shows increased thickness, normal excursion. Interventricular septum shows increased thickness, normal excursion, hypertrophy of the left ventricle, ejection fraction 75%. Left atrium enlarged 4.8 cm. Aortic root shows normal dimension, normal excursion of aortic leaflets. CONCLUSION: Hypertrophy of the left ventricle, left atrial enlargement, ejection fraction 75%. 2D ECHO: Long axis view showed normal sized left ventricle with hypertrophy of the left ventricle. Left atrium enlarged. Aortic root shows normal dimension, normal excursion of aortic leaflets. Short axis view of mitral valve normal. Short axis view of aortic valve normal. Apical four chamber view showed normal sized left ventricle with hypertrophy of the left ventricle. Left atrium enlarged. The right ventricle DICTATION ENDS HERE JOB# [id number]
--- NOTE | 2018-03-27 14:15 | Cardiology ---
03/25/[address] Akers. M-MODE ECHOCARDIOGRAM: Mitral valve, anterior leaflet of mitral valve shows normal excursion, EF velocity. Posterior leaflet of mitral valve shows normal excursion. Left ventricular posterior wall shows increased thickness, normal excursion. Interventricular septum shows increased thickness, normal excursion. There is hypertrophy of the left ventricle, ejection fraction 75%. Left atrium enlarged 4.8 cm. Aortic root shows normal dimension, normal excursion of aortic leaflets. CONCLUSION: Hypertrophy of the left ventricle, left atrial enlargement, ejection fraction 75%. 2D ECHO: Long axis view showed normal sized left ventricle with hypertrophy of the left ventricle. Left atrium enlarged. Aortic root shows normal dimension, normal excursion of aortic leaflets. Short axis view of mitral valve normal. Short axis view of aortic valve normal. Apical four chamber view showed normal sized left ventricle with hypertrophy of the left ventricle. Left atrium enlarged. Right ventricular cavity, right atrium normal, no pericardial effusion. CONCLUSION: Hypertrophy of the left ventricle, left atrial enlargement, ejection fraction 75%. Doppler study shows moderate mitral regurgitation, moderate tricuspid regurgitation. Right ventricular systolic pressure 66 mmHg with moderate pulmonary hypertension. JOB# [id number]
== END 2018-03-27 18:00 | disposition home or self-care (01) | DRG 280 ==
LOC: ER 17:35 → TELE 22:14
PROVIDERS: ADMIT Internal Medicine; ATTEND Internal Medicine
DX: I21.4 Non-ST elevation (NSTEMI) myocardial infarction (principal); I50.43 Acute on chronic combined systolic (congestive) and diastolic (congestive) heart failure; I42.1 Obstructive hypertrophic cardiomyopathy; D72.829 Elevated white blood cell count, unspecified; E86.0 Dehydration; I95.9 Hypotension, unspecified; I50.9 Heart failure, unspecified; I11.0 Hypertensive heart disease with heart failure; I25.10 Atherosclerotic heart disease of native coronary artery without angina pectoris; J44.9 Chronic obstructive pulmonary disease, unspecified; E78.5 Hyperlipidemia, unspecified; Z82.49 Family history of ischemic heart disease and other diseases of the circulatory system; Z95.810 Presence of automatic (implantable) cardiac defibrillator; Z88.0 Allergy status to penicillin; Z86.711 Personal history of pulmonary embolism
CPT/HCPCS: 36415-UA; 71045-TC; 71275-TC; 80048-TC; 80053-TC; 80061-TC; 81001-TC; 82550-TC; 83605; 83880-TC; 84484-TC; 85007-TC; 85025-TC; 85379-TC; 85610-TC; 85730-TC; 87086-90; 87804-TC; 93005; 94760; J1940; J1956; J7030; Q9967; Z7610